=== PATIENT | male | born 1940 | race Two or more races ===

== ENCOUNTER → 2016-02-25 | Outpatient (CLI) | payer MEDICARE, MEDICAID ==
[~2016-02-25] MED LIST: ACLI1AER2 INH; ASPI81CH49 PO; CARV3.1240 PO; FLUT110A INH; LISI10TA6 PO; PRAV20TA3; PROAIR INH
[2016-02-25 11:14] LABS: Urine RBC None Seen /hpf (0 - 3)
[2016-02-25 11:29] LABS: Basophils # (auto) 0 uL; Basophils % (auto) 0.5 % (0.0-2.0); Eosinophils # (auto) 0.2 uL; Eosinophils % (auto) 2.3 % (0.0-7.0); Hematocrit 49.7 % (41.0-53.0); Hemoglobin 16.2 g/dL (13.5-17.5); Lymphocytes # (auto) 4.9 uL; Lymphocytes % (auto) 54.8 % (10.0-50.0); Mean Corpuscular Hemoglobin 30.3 pg (28.0-32.0); Mean Corpuscular Hgb Conc. 32.6 g/dL (32.0-36.0); Mean Corpuscular Volume 92.9 fL (80.0-100.0); Mean Platelet Volume 8.7 fL (7.4-10.4); Monocytes # (auto) 0.8 uL; Monocytes % (auto) 9.3 % (0.0-12.0); Neutrophils % (auto) 33.1 % (37.0-80.0); Platelet Count (auto) 165 10^3/uL (140-450); Red Cell Distribution Width 13.9 % (11.6-16.0); White Blood Cell 8.9 10^3/uL (4.4-10.8)
[2016-02-25 11:37] LABS: Urine Bilirubin Negative (Negative); Urine Blood Negative /uL (Negative); Urine Color Yellow (Yellow); Urine Glucose Normal (Normal); Urine Ketone Negative (Negative); Urine Mucus FEW (None Seen); Urine Nitrite Negative (Negative); Urine Urobilinogen Normal (Negative); Urine pH 5.5 (5.0-8.0)
[2016-02-25 11:54] LABS: Albumin 3.9 g/dL (3.4-5.0); BUN/Creatinine Ratio 16.9; Bilirubin, Total 0.6 mg/dL (0.2-1.0); Calcium 9.2 mg/dL (8.5-10.1); Potassium 4.9 mmol/L (3.5-5.1); Total Protein 7.8 g/dL (6.4-8.2)
== END | disposition home or self-care (01) ==
LOC: LAB 10:21
PROVIDERS: ATTEND Internal Medicine
DX: Z00.00 Encounter for general adult medical examination without abnormal findings (principal)
CPT/HCPCS: 36415; 80053; 80061; 81001; 85025; 85049

== ENCOUNTER 2017-07-25 14:54 | Emergency (ER) | payer MEDICARE, MEDICAID ==
[~2017-07-25] VITALS: Ht 165.1 cm; Wt 70.8 kg
[2017-07-25 15:45] VITALS: BP 118/62
[2017-07-25 15:58] LABS: Basophils # (auto) 0.1 uL; Basophils % (auto) 0.7 % (0.0-2.0); Eosinophils # (auto) 0.1 uL; Eosinophils % (auto) 1.3 % (0.0-7.0); Hematocrit 41.6 % (41.0-53.0); Hemoglobin 13.7 g/dL (13.5-17.5); Lymphocytes % (auto) 35.7 % (10.0-50.0); Mean Corpuscular Hemoglobin 29.9 pg (28.0-32.0); Mean Corpuscular Hgb Conc. 32.9 g/dL (32.0-36.0); Mean Corpuscular Volume 91.1 fL (80.0-100.0); Monocytes # (auto) 0.9 uL; Monocytes % (auto) 10.3 % (0.0-12.0); Neutrophils # (auto) 4.4 uL; Nucleated Red Blood Cells % 0.1 %; Platelet Count (auto) 202 10^3/uL (140-450); Red Blood Cells 4.57 10^6/uL (4.5-5.90); Red Cell Distribution Width 14.5 % (11.8-14.3); White Blood Cell 8.4 10^3/uL (4.4-10.8)
[2017-07-25 16:07] LABS: Albumin 3.4 g/dL (3.4-5.0); Blood Urea Nitrogen 20 mg/dL (7-18); Calcium 8.5 mg/dL (8.5-10.1); Carbon Dioxide 25 mmol/L (21-32); Glucose 82 mg/dL (74-106); Magnesium 2.3 mg/dL (1.6-2.6)
[2017-07-25 16:09] LABS: Alanine Aminotransferase 40 U/L (16-61); Anion Gap 9 (5-15); Aspartate Aminotransferase 32 U/L (15-37); BUN/Creatinine Ratio 20.6; Bilirubin, Total 0.4 mg/dL (0.2-1.0); Blood Alcohol < 3.0 mg/dL (0-5); Chloride 107 mmol/L (98-107); GFR African American 96 mL/min; GFR Non-African American 79 mL/min; Potassium 4.3 mmol/L (3.5-5.1); Sodium 141 mmol/L (136-145); Total Protein 7.3 g/dL (6.4-8.2)
[2017-07-25 16:13] LABS: Alkaline Phosphatase 85 U/L (45-117)
== END 2017-07-25 17:10 | disposition home or self-care (01) ==
LOC: ER 14:54
DX: G45.9 Transient cerebral ischemic attack, unspecified (principal); I10 Essential (primary) hypertension; I25.2 Old myocardial infarction; F12.10 Cannabis abuse, uncomplicated
CPT/HCPCS: 36415; 70450; 80053; 80320; 83735; 84484; 85025

== ENCOUNTER → 2018-02-16 | Outpatient (CLI) | payer MEDICARE, MEDICAID ==
[2018-02-16 09:30] LABS: Potassium 4.3 mmol/L (3.5-5.1)
[2018-02-16 09:31] LABS: Basophils # (auto) 0.1 uL; Eosinophils # (auto) 0.1 uL; Eosinophils % (auto) 2.2 % (0.0-7.0); Hematocrit 42.5 % (41.0-53.0); Hemoglobin 13.9 g/dL (13.5-17.5); Lymphocytes # (auto) 3.1 uL; Lymphocytes % (auto) 52.3 % (10.0-50.0); Mean Corpuscular Hemoglobin 27.8 pg (28.0-32.0); Mean Corpuscular Hgb Conc. 32.7 g/dL (32.0-36.0); Monocytes # (auto) 0.8 uL; Monocytes % (auto) 13.4 % (0.0-12.0); Neutrophils # (auto) 1.9 uL; Neutrophils % (auto) 31.1 % (37.0-80.0); Nucleated Red Blood Cells % 0.2 %; Platelet Count (auto) 193 10^3/uL (140-450); Red Cell Distribution Width 15.1 % (11.8-14.3)
[2018-02-16 10:14] LABS: Albumin 3.7 g/dL (3.4-5.0); BUN/Creatinine Ratio 18.5; Bilirubin, Total 0.5 mg/dL (0.2-1.0); Calcium 8.5 mg/dL (8.5-10.1); Total Protein 7.5 g/dL (6.4-8.2)
== END | disposition home or self-care (01) ==
LOC: LAB 08:35
PROVIDERS: ATTEND Physician Assistant
DX: Z12.5 Encounter for screening for malignant neoplasm of prostate (principal); I10 Essential (primary) hypertension; E78.49 Other hyperlipidemia; M15.9 Polyosteoarthritis, unspecified; R41.81 Age-related cognitive decline; I70.91 Generalized atherosclerosis
CPT/HCPCS: 36415; 80053; 80061; 84153; 85025

== ENCOUNTER → 2018-09-14 | Outpatient (CLI) | payer MEDICARE, MEDICAID | END | disposition home or self-care (01) | LOC: LAB 10:47 | PROVIDERS: ATTEND Physician Assistant | DX: I11.0 Hypertensive heart disease with heart failure (principal); I50.9 Heart failure, unspecified; J44.9 Chronic obstructive pulmonary disease, unspecified | CPT/HCPCS: 82274 ==

== ENCOUNTER 2018-10-29 19:55 | Emergency (ER) | payer MEDICARE, MEDICAID ==
[~2018-10-29] VITALS: Ht 165.1 cm; Wt 72.6 kg
[2018-10-29 22:01] LABS: Basophils # (auto) 0.1 uL; Basophils % (auto) 1.3 % (0.0-2.0); Eosinophils # (auto) 0.3 uL; Eosinophils % (auto) 3.4 % (0.0-7.0); Hematocrit 36.9 % (41.0-53.0); Hemoglobin 11.8 g/dL (13.5-17.5); Lymphocytes # (auto) 3.5 uL; Lymphocytes % (auto) 43.7 % (10.0-50.0); Mean Corpuscular Hemoglobin 24.6 pg (28.0-32.0); Mean Corpuscular Volume 77.1 fL (80.0-100.0); Monocytes # (auto) 0.8 uL; Monocytes % (auto) 10.2 % (0.0-12.0); Neutrophils # (auto) 3.3 uL; Neutrophils % (auto) 41.4 % (37.0-80.0); Platelet Count (auto) 248 10^3/uL (140-450); Red Blood Cells 4.79 10^6/uL (4.5-5.90); Red Cell Distribution Width 18.6 % (11.8-14.3); White Blood Cell 7.9 10^3/uL (4.4-10.8)
[2018-10-29 22:19] LABS: Partial Thromboplastin Time 24.2 sec (23.64-32.05)
[2018-10-29 22:48] LABS: Aspartate Aminotransferase 30 U/L (15-37); Magnesium 2.4 mg/dL (1.6-2.6); Potassium 5.2 mmol/L (3.5-5.1); Sodium 141 mmol/L (136-145)
[2018-10-29 22:50] LABS: Alanine Aminotransferase 27 U/L (16-61); Alkaline Phosphatase 87 U/L (45-117); Anion Gap 5 (5-15); BUN/Creatinine Ratio 15.5; Blood Urea Nitrogen 16 mg/dL (7-18); Carbon Dioxide 26 mmol/L (21-32); Chloride 110 mmol/L (98-107); GFR African American 89 mL/min; GFR Non-African American 74 mL/min; Glucose 98 mg/dL (74-106)
[2018-10-29 22:51] LABS: Albumin 3.7 g/dL (3.4-5.0); Bilirubin, Total 0.4 mg/dL (0.2-1.0); Calcium 8.7 mg/dL (8.5-10.1); Total Protein 7.9 g/dL (6.4-8.2)
[2018-10-30 02:09] LABS: Urine Bacteria NONE SEEN /hpf (None Seen); Urine Blood Negative /uL (Negative); Urine Mucus FEW (None Seen); Urine Specific Gravity 1.018 (1.001-1.035); Urine WBC 1 /hpf (0 - 3)
[2018-10-30] MEDS ORDERED: cefTRIAXone 1GM/50ML D5W 50 ML IV ONE (07:45)
[2018-10-30] MEDS ORDERED: TETANUS-DIPTH-ACEL PERTUSSIS 0.5ML SYRG IM ONE (07:45)
[2018-10-30] MEDS ORDERED: LIDOCAINE 2%HCL (LOCAL ANESTH.) INJ 10ml MDV IJ ONE (07:45)
[2018-10-30] MEDS ORDERED: LIDOCAINE 2%HCL (LOCAL ANESTH.) INJ 20ML MDV ONE (08:10)
[2018-10-30 08:13] VITALS: BP 129/53
[2018-10-30] MEDS ORDERED: FUROSEMIDE 20 MG TAB PO ONE (10:00)
[2018-10-30] MEDS ORDERED: SODIUM ZIRCONIUM CYCL 10 GM PAK PO ONE (10:00)
== END 2018-10-30 10:33 | disposition home or self-care (01) ==
LOC: ER 20:03
DX: S01.01XA Laceration without foreign body of scalp, initial encounter (principal); E87.5 Hyperkalemia; E86.0 Dehydration; I25.10 Atherosclerotic heart disease of native coronary artery without angina pectoris; I11.0 Hypertensive heart disease with heart failure; I50.9 Heart failure, unspecified; J44.9 Chronic obstructive pulmonary disease, unspecified; I25.2 Old myocardial infarction; F12.90 Cannabis use, unspecified, uncomplicated; Z79.82 Long term (current) use of aspirin; Z79.899 Other long term (current) drug therapy; Z98.61 Coronary angioplasty status; Z95.0 Presence of cardiac pacemaker; X58.XXXA Exposure to other specified factors, initial encounter; Y93.89 Activity, other specified; Y99.8 Other external cause status; Y92.89 Other specified places as the place of occurrence of the external cause
CPT/HCPCS: 12002; 36415; 70450; 71045; 72125; 80053; 81001; 83735; 84484; 85025; 85610; 85730; 90471; 90715; 93005; 96365; 99284; J0696; J2001

== ENCOUNTER → 2020-03-10 | Outpatient (CLI) | payer MEDICARE, MEDICAID ==
[~2020-03-10] MED LIST changes: +LISI-648 PO; -LISI10TA6 PO
[2020-03-10 10:49] LABS: Basophils # (auto) 0.1 10 ^3/uL (0-0.2); Eosinophils # (auto) 0.4 10 ^3/uL (0-0.8); Hemoglobin 10.3 g/dL (13.5-17.5); Lymphocytes # (auto) 3.4 10 ^3/uL (0.4-5.4); Neutrophils # (auto) 4.1 10 ^3/uL (1.6-8.6)
[2020-03-10 10:51] LABS: Basophils % (auto) 1.3 % (0.0-2.0); Hematocrit 32.7 % (41.0-53.0); Mean Corpuscular Hemoglobin 22.1 pg (28.0-32.0); Mean Corpuscular Hgb Conc. 31.5 g/dL (32.0-36.0); Mean Corpuscular Volume 70.3 fL (80.0-100.0); Monocytes # (auto) 0.9 10 ^3/uL (0-1.3); Monocytes % (auto) 9.9 % (0.0-12.0); Neutrophils % (auto) 45.8 % (37.0-80.0); Platelet Count (auto) 250 10^3/uL (140-450); Red Blood Cells 4.65 10^6/uL (4.5-5.90); White Blood Cell 8.9 10^3/uL (4.4-10.8)
[2020-03-10 10:55] LABS: Red Cell Distribution Width 20.3 % (11.8-14.3)
[2020-03-10 12:27] LABS: Potassium 4.1 mmol/L (3.5-5.1)
[2020-03-10 12:41] LABS: Albumin 3.3 g/dL (3.4-5.0); BUN/Creatinine Ratio 18.7; Bilirubin, Total 0.4 mg/dL (0.2-1.0); Calcium 8.3 mg/dL (8.5-10.1); Total Protein 7.8 g/dL (6.4-8.2)
== END | disposition home or self-care (01) ==
LOC: LAB 10:34
PROVIDERS: ATTEND Physician Assistant
DX: I10 Essential (primary) hypertension (principal); I42.9 Cardiomyopathy, unspecified; J96.01 Acute respiratory failure with hypoxia; R35.1 Nocturia
CPT/HCPCS: 36415; 80053; 80061; 84153; 85025

== ENCOUNTER 2021-01-28 15:54 | Inpatient (IN) | payer MEDICARE, MEDICAID ==
[~2021-01-28] VITALS: Ht 162.6 cm; Wt 63.7 kg
[~2021-01-28 15:54] MED LIST changes: -LISI-648 PO; +LISI-716 PO
[2021-01-28] MEDS ORDERED: IPRATROPIUM BROM 0.5 MG/2.5ML INH SOL HHN ONE (16:30)
[2021-01-28] MEDS ORDERED: ALBUTEROL SULF 2.5 MG/0.5ML(0.5%) NEB SOLN HHN ONE (16:30)
[2021-01-28] MEDS ORDERED: AZITHROMYCIN 500MG/ 250ML 250 ML IV ONE (16:30)
[2021-01-28] MEDS ORDERED: methylPREDNISolone SOD SUCC 125 MG/2 ML VL IV ONE (16:30)
[2021-01-28] MEDS ORDERED: ACETAMINOPHEN 325 MG TAB PO ONE ×2 (16:39→16:45)
[2021-01-28 16:44] LABS: Basophils # (auto) 0.2 10 ^3/uL (0-0.2); Eosinophils # (auto) 0 10 ^3/uL (0-0.8); Eosinophils % (auto) 0.1 % (0.0-7.0); Hematocrit 44.5 % (41.0-53.0); Hemoglobin 14.8 g/dL (13.5-17.5); Lymphocytes # (auto) 1.5 10 ^3/uL (0.4-5.4); Lymphocytes % (auto) 9.5 % (10.0-50.0); Mean Corpuscular Hemoglobin 29.9 pg (28.0-32.0); Mean Corpuscular Hgb Conc. 33.3 g/dL (32.0-36.0); Mean Corpuscular Volume 89.8 fL (80.0-100.0); Monocytes # (auto) 0.9 10 ^3/uL (0-1.3); Monocytes % (auto) 5.6 % (0.0-12.0); Neutrophils # (auto) 12.9 10 ^3/uL (1.6-8.6); Neutrophils % (auto) 83.8 % (37.0-80.0); Red Blood Cells 4.96 10^6/uL (4.5-5.90); Red Cell Distribution Width 16.3 % (11.8-14.3); White Blood Cell 15.4 10^3/uL (4.4-10.8)
[2021-01-28 17:01] LABS: Albumin 2.4 g/dL (3.4-5.0); Anion Gap 7 (5-15); Blood Urea Nitrogen 15 mg/dL (7-18); Calcium 8.5 mg/dL (8.5-10.1); Carbon Dioxide 29 mmol/L (21-32); Chloride 100 mmol/L (98-107); Glucose 150 mg/dL (74-106); Magnesium 3.1 mg/dL (1.6-2.6); Potassium 3.9 mmol/L (3.5-5.1); Sodium 136 mmol/L (136-145)
[2021-01-28 17:10] LABS: Alanine Aminotransferase 32 U/L (16-61); Alkaline Phosphatase 115 U/L (45-117); Aspartate Aminotransferase 35 U/L (15-37); BUN/Creatinine Ratio 16.7; Bilirubin, Total 0.5 mg/dL (0.2-1.0); GFR African American 104 mL/min; GFR Non-African American 86 mL/min; Total Protein 8.5 g/dL (6.4-8.2)
[2021-01-28 17:14] LABS: CRP High Sensitivity > 19.0 mg/dL (< 0.3)
[2021-01-28] MEDS ORDERED: FUROSEMIDE 40 MG/4 ML VIAL IV ONE (17:15)
[2021-01-28] MEDS ORDERED: FLUT100I IN ×2 (17:52→18:22)
[2021-01-28] MEDS ORDERED: IPRA0.00 NEB (17:55)
[2021-01-28 18:08] LABS: Urine Bacteria NONE SEEN /hpf (None Seen); Urine Blood Negative /uL (Negative); Urine Mucus FEW (None Seen); Urine Specific Gravity 1.023 (1.001-1.035); Urine WBC 1 /hpf (0 - 3)
[2021-01-28] MEDS ORDERED: BUPR100T8 PO (18:10)
[2021-01-28] MEDS ORDERED: FUR20T PO (18:10)
[2021-01-28] MEDS ORDERED: OMEP-260 PO (18:10)
[2021-01-28] MEDS ORDERED: NITR0.4S29 SL (18:20)
[2021-01-28] MEDS ORDERED: ALBUAER3 IN (18:22)
[2021-01-28] MEDS ORDERED: POTA10TA32 PO (18:22)
[2021-01-28] MEDS ORDERED: CALC1TAB92 PO (18:24)
[2021-01-28] MEDS ORDERED: FERR-20 PO (18:24)
[2021-01-28] MEDS ORDERED: ALUM & MAG HYDROX-SIMETH LIQ(MAALOX) 30 ML PO PRN (20:00)
[2021-01-28] MEDS ORDERED: REMDESIVIR PER PHARMACY 0 ML IV SCH (20:00)
[2021-01-28] MEDS ORDERED: MORPHINE SULFATE INJECTION 2 MG/ML SYRG IV PRN ×2 (20:00)
[2021-01-28] MEDS ORDERED: DOCUSATE SOD 100 MG CAP PO PRN (20:00)
[2021-01-28] MEDS ORDERED: ALBUTEROL SULF HFA 90MCG INH 200DOSE IN PRN (20:00)
[2021-01-28] MEDS ORDERED: ACETAMINOPHEN 500 MG TAB PO PRN (20:00)
[2021-01-28] MEDS ORDERED: NITROGLYCERIN 0.4 MG SL TAB SL PRN (20:00)
[2021-01-28] MEDS ORDERED: METOCLOPRAMIDE HCL 5MG/ml INJ 2ml VIAL IV PRN (20:00)
[2021-01-28] MEDS: FUROSEMIDE 40 MG/4 ML VIAL IV ONE ×2 (20:15→21:21)
[2021-01-28 20:49] LABS: Cholesterol 92 mg/dL (< 200)
[2021-01-28 20:51] LABS: HDL Cholesterol 19 mg/dL (40-59); LDL Cholesterol 65 mg/dL (< 100); Triglycerides 65 mg/dL (< 150)
[2021-01-28 20:53] LABS: Amphetamine Screen, Urine NEGATIVE (NEGATIVE); Barbiturate Scree,Urine NEGATIVE (NEGATIVE); Benzodiazephine Screen, Urine NEGATIVE (NEGATIVE); Cannabinoid Screen, Urine POSITIVE (NEGATIVE); Cocaine Screen, Urine NEGATIVE (NEGATIVE); Opiate Scree,Urine NEGATIVE (NEGATIVE); Phencyclidine Screen, Urine NEGATIVE (NEGATIVE)
[2021-01-28 20:54] LABS: Thyroid Stimulating Hormone 0.51 uIU/mL (0.358-3.74)
[2021-01-28] MEDS ORDERED: cefTRIAXone 1GM/50ML D5W 50 ML IV ONE (21:00)
[2021-01-28] MEDS ORDERED: FAMOTIDINE (10MG/ML) 2ML VL IV ONE (21:00)
[2021-01-28] MEDS ORDERED: BUDESONIDE (INHALATION) 180 MCG IH IN SCH (22:00)
[2021-01-28] MEDS: ATORVASTATIN 20 MG TAB PO SCH (22:40)
[2021-01-28] MEDS: POTASSIUM CHL 20 Meq TABLET PO SCH (22:40)
[2021-01-28] MEDS: ENOXAPARIN SOD 40 MG/0.4 ML SYRINGE SC SCH (22:41)
[2021-01-28] MEDS ORDERED: HALOPERIDOL LACTATE 5 MG/ML INJ VIAL IM ONE (22:45)
[2021-01-29] MEDS: FUROSEMIDE 20 MG/2 ML VIAL IV SCH ×2 (05:54→18:45)
[2021-01-29] MEDS: POTASSIUM CHL 20 Meq TABLET PO SCH ×2 (08:25→22:11)
[2021-01-29] MEDS: ASPirin 81 mg TAB PO SCH (08:25)
[2021-01-29] MEDS: ENOXAPARIN SOD 40 MG/0.4 ML SYRINGE SC SCH (08:26)
[2021-01-29 09:27] LABS: Basophils # (auto) 0 10 ^3/uL (0-0.2); Eosinophils # (auto) 0 10 ^3/uL (0-0.8); Hematocrit 43.9 % (41.0-53.0); Hemoglobin 14.3 g/dL (13.5-17.5); Lymphocytes # (auto) 0.8 10 ^3/uL (0.4-5.4); Mean Corpuscular Hgb Conc. 32.6 g/dL (32.0-36.0); Mean Corpuscular Volume 88.9 fL (80.0-100.0); Monocytes # (auto) 0.3 10 ^3/uL (0-1.3); Monocytes % (auto) 1.8 % (0.0-12.0); Neutrophils # (auto) 15.3 10 ^3/uL (1.6-8.6); Neutrophils % (auto) 93.2 % (37.0-80.0); Nucleated Red Blood Cells % 0.1 %; Red Blood Cells 4.93 10^6/uL (4.5-5.90); Red Cell Distribution Width 15.9 % (11.8-14.3); White Blood Cell 16.4 10^3/uL (4.4-10.8)
[2021-01-29 09:39] LABS: INR 1.22 (0.9-1.15); Partial Thromboplastin Time 28.6 sec (23.6-33.0)
[2021-01-29 09:40] LABS: Albumin 2.3 g/dL (3.4-5.0); Calcium 8.3 mg/dL (8.5-10.1); Magnesium 3.2 mg/dL (1.6-2.6); Potassium 3.9 mmol/L (3.5-5.1)
[2021-01-29 09:47] LABS: BUN/Creatinine Ratio 18.4; Bilirubin, Total 0.4 mg/dL (0.2-1.0); Phosphorus 2.8 mg/dL (2.5-4.90); Total Protein 8.2 g/dL (6.4-8.2)
[2021-01-29] MEDS ORDERED: CHOLECALCIFEROL (VITD3) 2,000 UNIT CAP/TAB PO SCH (10:00)
[2021-01-29] MEDS ORDERED: IVERMECTIN 3 MG TAB PO SCH (10:00)
[2021-01-29] MEDS ORDERED: DexAMETHasone SOD PHOS 10MG/1ML VIAL INJ IV SCH (10:00)
[2021-01-29] MEDS ORDERED: ASCORBIC ACID 1,000 MG TAB PO SCH (10:00)
[2021-01-29] MEDS ORDERED: ZINC SULFATE 220mg CAP or TAB PO SCH (10:00)
[2021-01-29] MEDS: METOPROLOL SUCCINATE XL 50 MG TAB PO SCH (11:00)
[2021-01-29] MEDS: BENAZEPRIL HCL 10 MG TAB PO SCH (11:00)
[2021-01-29] MEDS: cefTRIAXone 1GM/50ML D5W 50 ML IV SCH (21:00)
[2021-01-29] MEDS ORDERED: AZITHROMYCIN 500MG/ 250ML 250 ML IV SCH (22:00)
[2021-01-29] MEDS: ATORVASTATIN 20 MG TAB PO SCH (22:11)
[2021-01-29] MEDS: FAMOTIDINE (10MG/ML) 2ML VL IV SCH (22:11)
[2021-01-30] MEDS: LINEZOLID 600MG/300ML 300 ML IV SCH ×2 (00:21→12:35)
[2021-01-30] MEDS: TEMAZEPAM 15 MG CAP PO PRN (04:14)
[2021-01-30] MEDS ORDERED: CARVEDILOL 3.125 MG TAB PO ONE ×2 (05:15→05:30)
[2021-01-30] MEDS ORDERED: CARVEDILOL 12.5 MG TAB PO ONE (05:30)
[2021-01-30] MEDS: FUROSEMIDE 20 MG/2 ML VIAL IV SCH ×2 (07:32→17:26)
[2021-01-30 08:00] VITALS: BP 126/80
[2021-01-30 09:00] VITALS: BP 126/80
[2021-01-30] MEDS: ASPirin 81 mg TAB PO SCH (09:45)
[2021-01-30] MEDS: CARVEDILOL 3.125 MG TAB PO SCH ×3 (09:46→23:46)
[2021-01-30] MEDS: POTASSIUM CHL 20 Meq TABLET PO SCH ×2 (09:46→22:16)
[2021-01-30] MEDS: BENAZEPRIL HCL 10 MG TAB PO SCH (09:46)
[2021-01-30] MEDS: ENOXAPARIN SOD 40 MG/0.4 ML SYRINGE SC SCH (09:47)
[2021-01-30] MEDS: METOPROLOL SUCCINATE XL 50 MG TAB PO SCH (09:47)
[2021-01-30 13:00] VITALS: BP 108/79
[2021-01-30 17:00] VITALS: BP 101/59
[2021-01-30] MEDS: DOXYCYCLINE 100MG/250ML 250 ML IV SCH (17:42)
[2021-01-30 20:00] VITALS: BP 126/80
[2021-01-30 22:05] VITALS: BP 97/55
[2021-01-30] MEDS: FAMOTIDINE (10MG/ML) 2ML VL IV SCH (22:14)
[2021-01-30] MEDS: ATORVASTATIN 20 MG TAB PO SCH (22:17)
[2021-01-30] MEDS: cefTRIAXone 1GM/50ML D5W 50 ML IV SCH ×2 (22:18→23:47)
[2021-01-31] VITALS (7 sets, daily range): BP systolic 98–122; BP diastolic 53–69
[2021-01-31] MEDS: LINEZOLID 600MG/300ML 300 ML IV SCH ×2 (00:51→12:24)
[2021-01-31] MEDS: DOXYCYCLINE 100MG/250ML 250 ML IV SCH ×2 (03:24→15:10)
[2021-01-31 05:03] LABS: Basophils # (auto) 0 10 ^3/uL (0-0.2); Basophils % (auto) 0.1 % (0.0-2.0); Eosinophils # (auto) 0 10 ^3/uL (0-0.8); Eosinophils % (auto) 0.5 % (0.0-7.0); Hematocrit 41.1 % (41.0-53.0); Hemoglobin 13.4 g/dL (13.5-17.5); Lymphocytes # (auto) 1.9 10 ^3/uL (0.4-5.4); Lymphocytes % (auto) 17.3 % (10.0-50.0); Mean Corpuscular Hemoglobin 28.7 pg (28.0-32.0); Mean Corpuscular Hgb Conc. 32.7 g/dL (32.0-36.0); Mean Corpuscular Volume 87.8 fL (80.0-100.0); Monocytes # (auto) 0.9 10 ^3/uL (0-1.3); Monocytes % (auto) 8.1 % (0.0-12.0); Neutrophils # (auto) 8.2 10 ^3/uL (1.6-8.6); Nucleated Red Blood Cells % 0.1 %; Red Blood Cells 4.68 10^6/uL (4.5-5.90)
[2021-01-31 05:23] LABS: Potassium 4.3 mmol/L (3.5-5.1)
[2021-01-31 05:24] LABS: Calcium 8.2 mg/dL (8.5-10.1)
[2021-01-31] MEDS: FUROSEMIDE 20 MG/2 ML VIAL IV SCH ×2 (05:46→18:05)
[2021-01-31] MEDS: POTASSIUM CHL 20 Meq TABLET PO SCH ×2 (09:23→20:49)
[2021-01-31] MEDS: ASPirin 81 mg TAB PO SCH (09:23)
[2021-01-31] MEDS: BENAZEPRIL HCL 10 MG TAB PO SCH (09:23)
[2021-01-31] MEDS: METOPROLOL SUCCINATE XL 50 MG TAB PO SCH (09:24)
[2021-01-31] MEDS: ENOXAPARIN SOD 40 MG/0.4 ML SYRINGE SC SCH (09:25)
[2021-01-31] MEDS ORDERED: THROAT LOZENGES(CEPASTAT) MT PRN (10:45)
[2021-01-31] MEDS: ATORVASTATIN 20 MG TAB PO SCH (20:49)
[2021-01-31] MEDS: FAMOTIDINE (10MG/ML) 2ML VL IV SCH (20:49)
[2021-01-31] MEDS: CARVEDILOL 3.125 MG TAB PO SCH (20:51)
[2021-01-31] MEDS: HYDROcodone-ACET 5/325MG TAB PO PRN (20:57)
[2021-01-31] MEDS: TEMAZEPAM 15 MG CAP PO PRN (20:58)
[2021-02-01] MEDS: LINEZOLID 600MG/300ML 300 ML IV SCH ×2 (00:08→13:11)
[2021-02-01] MEDS: DOXYCYCLINE 100MG/250ML 250 ML IV SCH ×2 (02:57→16:29)
[2021-02-01 05:01] VITALS: BP 128/62
[2021-02-01 05:27] LABS: Basophils # (auto) 0.1 10 ^3/uL (0-0.2); Basophils % (auto) 0.7 % (0.0-2.0); Eosinophils # (auto) 0.1 10 ^3/uL (0-0.8); Eosinophils % (auto) 1.5 % (0.0-7.0); Hematocrit 41.7 % (41.0-53.0); Lymphocytes % (auto) 23.8 % (10.0-50.0); Mean Corpuscular Hemoglobin 29.7 pg (28.0-32.0); Mean Corpuscular Hgb Conc. 33.5 g/dL (32.0-36.0); Mean Corpuscular Volume 88.7 fL (80.0-100.0); Monocytes % (auto) 11.9 % (0.0-12.0); Neutrophils # (auto) 5.3 10 ^3/uL (1.6-8.6); Neutrophils % (auto) 62.1 % (37.0-80.0); Nucleated Red Blood Cells % 0.2 %; Red Cell Distribution Width 15.6 % (11.8-14.3); White Blood Cell 8.5 10^3/uL (4.4-10.8)
[2021-02-01 05:50] LABS: Potassium 4.8 mmol/L (3.5-5.1)
[2021-02-01 05:54] LABS: BUN/Creatinine Ratio 44.9
[2021-02-01] MEDS: FUROSEMIDE 20 MG/2 ML VIAL IV SCH ×2 (07:16→18:16)
[2021-02-01 08:00] VITALS: BP 151/83
[2021-02-01 08:56] VITALS: BP 151/83
[2021-02-01] MEDS ORDERED: ALBUTEROL SULF 2.5 MG/0.5ML(0.5%) NEB SOLN NEB PRN (09:45)
[2021-02-01] MEDS: ASPirin 81 mg TAB PO SCH (09:55)
[2021-02-01] MEDS: CARVEDILOL 3.125 MG TAB PO SCH ×3 (09:55→22:07)
[2021-02-01] MEDS: POTASSIUM CHL 20 Meq TABLET PO SCH ×2 (09:56→21:08)
[2021-02-01] MEDS: BENAZEPRIL HCL 10 MG TAB PO SCH (09:57)
[2021-02-01] MEDS: METOPROLOL SUCCINATE XL 50 MG TAB PO SCH (09:57)
[2021-02-01] MEDS: ENOXAPARIN SOD 40 MG/0.4 ML SYRINGE SC SCH (09:59)
[2021-02-01 13:00] VITALS: BP 138/78
[2021-02-01] MEDS: HYDROcodone-ACET 5/325MG TAB PO PRN ×2 (16:41→21:17)
[2021-02-01 17:00] VITALS: BP 113/62
[2021-02-01] MEDS: cefTRIAXone 1GM/50ML D5W 50 ML IV SCH (21:06)
[2021-02-01] MEDS: FAMOTIDINE (10MG/ML) 2ML VL IV SCH (21:06)
[2021-02-01] MEDS: ATORVASTATIN 20 MG TAB PO SCH (21:08)
[2021-02-01] MEDS: TEMAZEPAM 15 MG CAP PO PRN (21:17)
[2021-02-01 22:00] VITALS: BP 131/72
[2021-02-02] VITALS (7 sets, daily range): BP systolic 101–129; BP diastolic 46–72
[2021-02-02] MEDS: LINEZOLID 600MG/300ML 300 ML IV SCH (00:55)
[2021-02-02] MEDS: DOXYCYCLINE 100MG/250ML 250 ML IV SCH ×2 (03:01→15:02)
[2021-02-02] MEDS: FUROSEMIDE 20 MG/2 ML VIAL IV SCH ×2 (05:40→18:00)
[2021-02-02] MEDS: BENAZEPRIL HCL 10 MG TAB PO SCH (10:00)
[2021-02-02] MEDS: ENOXAPARIN SOD 40 MG/0.4 ML SYRINGE SC SCH (10:00)
[2021-02-02] MEDS: POTASSIUM CHL 20 Meq TABLET PO SCH (10:00)
[2021-02-02] MEDS: METOPROLOL SUCCINATE XL 50 MG TAB PO SCH (10:00)
[2021-02-02] MEDS: CARVEDILOL 3.125 MG TAB PO SCH (10:00)
[2021-02-02] MEDS: ASPirin 81 mg TAB PO SCH (10:00)
[2021-02-02] MEDS ORDERED: LEVO750T8 PO (10:22)
== END 2021-02-02 21:00 | disposition home health service (06) | DRG 720 ==
LOC: ER 15:54 → TELE 19:59 → TELE-CENTR 01-29 22:39
PROVIDERS: ADMIT Hospitalist; ATTEND Internal Medicine Pulmonary Disease
DX: A41.9 Sepsis, unspecified organism (principal); J96.01 Acute respiratory failure with hypoxia; I50.43 Acute on chronic combined systolic (congestive) and diastolic (congestive) heart failure; I11.0 Hypertensive heart disease with heart failure; J84.9 Interstitial pulmonary disease, unspecified; J44.0 Chronic obstructive pulmonary disease with (acute) lower respiratory infection; R65.20 Severe sepsis without septic shock; R79.82 Elevated C-reactive protein (CRP); I25.10 Atherosclerotic heart disease of native coronary artery without angina pectoris; I25.5 Ischemic cardiomyopathy; E78.5 Hyperlipidemia, unspecified; F17.200 Nicotine dependence, unspecified, uncomplicated; H91.90 Unspecified hearing loss, unspecified ear; E88.09 Other disorders of plasma-protein metabolism, not elsewhere classified; Z20.822 Contact with and (suspected) exposure to COVID-19; Z79.51 Long term (current) use of inhaled steroids; Z79.82 Long term (current) use of aspirin; Z79.899 Other long term (current) drug therapy; Z95.0 Presence of cardiac pacemaker; K80.20 Calculus of gallbladder without cholecystitis without obstruction
CPT/HCPCS: 36415; 36600; 71045; 71250; 80048; 80053; 80061; 80307; 81001; 82728; 82805; 83605; 83615; 83735; 83880; 84100; 84443; 84484; 84550; 85025; 85379; 85610; 85730; 86141; 87040; 87077; 87086; 87186; 87426; 93005; 93306; 94644; 96365; 96375; 97163; 99291; G0378; J0696; J1100; J3490; J7042